=== PATIENT | female | born 1990 | race Caucasian/White ===

== ENCOUNTER 2021-03-07 14:05 | Inpatient (IN) ==
[2021-03-07] MEDS: Lactated Ringers 1000 ml BAG 1,000 ML IV ONE (15:15)
[2021-03-07 15:35] LABS: ABS Lymphocytes 1.7 10^3/ul (1.0-4.8); ABS Monocytes 0.5 10^3/ul (0-0.8); ABS Neutrophils 8.3 10^3/ul (1.5-7.7); Eosinophil % 0.3 %; Hematocrit 31 % (35-47); Hemoglobin 10.7 g/dL (12.0-16.0); Mean Corpuscular HGB Conc 35 g/dL (31-36); Mean Corpuscular Hemoglobin 32 pg (27-31); Mean Corpuscular Volume 92 fL (80-97); Mean Platelet Volume 7.8 fL (7.4-10.4); Platelet Count 262 10^3/uL (150-450); Red Blood Count 3.36 10^6 /uL (3.70-4.87); Red Cell Distribution Width 14 % (10-15); White Blood Count 10.6 10^3/uL (3.5-10.8)
[2021-03-07 16:16] LABS: Albumin 3.6 g/dL (3.2-5.2); Albumin/Globulin Ratio 1.2 (1-3); Calcium 9.2 mg/dL (8.6-10.3); Globulin 3.1 g/dL (2-4); Total Protein 6.7 g/dL (6.4-8.9); Uric Acid 5.3 mg/dL (2.3-6.6)
[2021-03-07 16:21] LABS: Potassium 4.2 mmol/L (3.5-5.0); Urine Benzodiazepine Screen None Detected (None Detect); Urine Cannabinoids Screen None Detected (None Detect); Urine Opiates Screen None Detected (None Detect)
[2021-03-07 16:47] LABS: Total Bilirubin 0.3 mg/dL (0.2-1.0)
[2021-03-07] MEDS ORDERED: Dinoprostone 10 MG VAG.SUPP VAGINAL ONE (16:47)
[2021-03-08] MEDS ORDERED: OBEPIDURAL 250 ML EPIDURAL ONE (02:04)
[2021-03-08] MEDS ORDERED: Oxytocin in LR 20 UNITS/1,000 ML BAG IVPB ONE (02:25)
[2021-03-08 06:36] LABS: Urine Appearance Clear; Urine Bilirubin Negative (Negative); Urine Blood Negative (Negative); Urine Color Yellow; Urine Glucose Negative (Negative); Urine Ketones 1+ (Negative); Urine Nitrite Negative (Negative); Urine Protein 1+(30 mg/dL) (Negative); Urine Urobilinogen Negative (Negative)
[2021-03-08 06:41] LABS: Urine Bacteria Absent (Absent); Urine Red Blood Cell Trace(0-2/hpf) (Absent); Urine Squamous Epithelial Cell Present (Absent); Urine White Blood Cell Absent (Absent)
[2021-03-08] MEDS: Lactated Ringers 1000 ml BAG 1,000 ML IV ONE (06:57)
[2021-03-08] MEDS ORDERED: Calcium Carb (TUMS) 500 mg CHEW TAB PO PRN (07:24)
[2021-03-08] MEDS ORDERED: Calcium Carb (TUMS) 500 mg CHEW TAB ONE (07:26)
[2021-03-08] MEDS ORDERED: Glycerin ADULT 2.4 gm SUPP PR PRN (08:07)
[2021-03-08] MEDS ORDERED: Witch Hazel PAD JAR TOPICAL PRN (08:07)
[2021-03-08] MEDS ORDERED: Dibucaine 1% OINT 28.35 GM TUBE PR PRN (08:07)
[2021-03-08] MEDS ORDERED: Lidocaine 1% VIAL 10 MG/ML VIAL ONE (08:43)
[2021-03-08] MEDS ORDERED: Lactated Ringers 1000 ml BAG 1,000 ML IV SCH (09:00)
[2021-03-08] MEDS ORDERED: Oxytocin in LR 20 UNITS/1,000 ML BAG IVPB SCH (09:00)
[2021-03-08] MEDS: LoraTADine 10 mg TAB (NF) PO SCH (21:58)
[2021-03-09 06:54] LABS: ABS Eosinophils 0.1 10^3/ul (0-0.6); ABS Lymphocytes 2.9 10^3/ul (1.0-4.8); ABS Monocytes 0.6 10^3/ul (0-0.8); ABS Neutrophils 8.1 10^3/ul (1.5-7.7); Eosinophil % 0.6 %; Hematocrit 27 % (35-47); Hemoglobin 9.1 g/dL (12.0-16.0); Lymphocyte % 24.5 %; Mean Corpuscular HGB Conc 34 g/dL (31-36); Mean Corpuscular Hemoglobin 32 pg (27-31); Mean Corpuscular Volume 93 fL (80-97); Mean Platelet Volume 7.5 fL (7.4-10.4); Platelet Count 212 10^3/uL (150-450); Red Blood Count 2.88 10^6 /uL (3.70-4.87); Red Cell Distribution Width 14 % (10-15); White Blood Count 11.7 10^3/uL (3.5-10.8)
[2021-03-09] MEDS: LoraTADine 10 mg TAB (NF) PO SCH (08:03)
[2021-03-10] MEDS: LoraTADine 10 mg TAB (NF) PO SCH (08:39)
[2021-03-10 10:20] VITALS: BP 146/95
== END 2021-03-10 12:45 | disposition home or self-care (01) | DRG 807 ==
LOC: MCHOBOUT 14:05 → MCHOB 14:23
PROVIDERS: ADMIT Midwife; ATTEND Midwife

== ENCOUNTER 2023-06-04 05:25 | Inpatient (IN) ==
[2023-06-04] MEDS ORDERED: Lidocaine 1% VIAL 10 MG/ML 30 ML VIAL INJ PRN (06:10)
[2023-06-04] MEDS ORDERED: Promethazine INJ(RESTRICTED) 25 MG/ML 1 ml VIAL IV PRN (06:10)
[2023-06-04 06:58] LABS: Urine Benzodiazepine Screen None Detected (None Detect); Urine Opiates Screen None Detected (None Detect)
[2023-06-04 07:21] LABS: ABS Basophils 0.1 10^3/uL (0.0-0.1); ABS Eosinophils 0.1 10^3/uL (0.0-0.5); ABS Lymphocytes 2.6 10^3/uL (1.0-4.8); ABS Monocytes 0.9 10^3/uL (0.0-0.9); ABS Neutrophils 14.2 10^3/uL (1.5-7.6); ABS Nucleated RBC 0.01 10^3/ul; Eosinophil % 0.5 %; Hematocrit 37.5 % (35-45); Hemoglobin 12.7 g/dL (11.5-14.3); Lymphocyte % 14.4 %; Mean Corpuscular Hemoglobin 30.7 pg (27-33); Mean Corpuscular Hgb Conc 33.9 g/dL (31-36); Mean Corpuscular Volume 90.6 fL (80-97); Mean Platelet Volume 7.9 fL (7.5-11.2); Platelet Count 321 10^3/uL (150-450); Red Blood Count 4.15 10^6/uL (3.63-4.92); White Blood Count 17.9 10^3/uL (3.8-11.8)
[2023-06-04] MEDS: Oxytocin in LR 20,000 MILLI.UNIT/1,000 ML BAG IV SCH (19:10)
[2023-06-04] MEDS ORDERED: Lactated Ringers 1000 ml BAG 1,000 ML IV SCH (20:00)
[2023-06-04] MEDS: Witch Hazel PAD JAR TOPICAL PRN (21:25)
[2023-06-04] MEDS: Dibucaine 1% OINT 28.35 GM TUBE PR PRN (21:25)
[2023-06-05 08:04] LABS: ABS Eosinophils 0.1 10^3/uL (0.0-0.5); ABS Monocytes 0.9 10^3/uL (0.0-0.9); ABS Neutrophils 11.4 10^3/uL (1.5-7.6); ABS Nucleated RBC 0.01 10^3/ul; Eosinophil % 0.5 %; Hematocrit 31.1 % (35-45); Hemoglobin 10.6 g/dL (11.5-14.3); Lymphocyte % 19.2 %; Mean Corpuscular Hemoglobin 30.9 pg (27-33); Mean Corpuscular Hgb Conc 34.2 g/dL (31-36); Mean Corpuscular Volume 90.2 fL (80-97); Mean Platelet Volume 7.7 fL (7.5-11.2); Platelet Count 275 10^3/uL (150-450); Red Blood Count 3.45 10^6/uL (3.63-4.92); White Blood Count 15.4 10^3/uL (3.8-11.8)
[2023-06-05] MEDS: Lactated Ringers 1000 ml BAG 1,000 ML IV SCH (22:33)
[2023-06-05] MEDS: Lactated Ringers 1000 ml BAG 1,000 ML IV ONE (22:33)
[2023-06-06] MEDS: Oxytocin in LR 20,000 MILLI.UNIT/1,000 ML BAG IV ONE (04:53)
[2023-06-06] MEDS: Buffered Lidocaine 1% SYRIN 1 ml INTRADERM ONE (04:53)
[2023-06-06 08:18] VITALS: BP 115/77
== END 2023-06-06 13:36 | disposition home or self-care (01) | DRG 560 ==
LOC: MCHOBOUT 05:25 → MCHOB 06:12
PROVIDERS: ADMIT Registered Nurse; ATTEND Midwife